=== PATIENT | female | born 2000 | race Caucasian/White ===

== ENCOUNTER 2023-12-03 09:24 | Emergency (ER) | payer OTHER, SELFPAY ==
--- NOTE | 2023-12-03 10:07 | ED_ITS ---
HPI - Extremity Injury (Lower) General Chief Complaint: Extremity Injury, Lower Stated Complaint: r foot inj Time Seen by Provider: 12/03/23 10:14 Source: patient and family Mode of arrival: wheelchair Limitations: no limitations History of Present Illness ED Provider: Felix Joshi PA-C HPI Narrative: 22 yo female presents to the ER for evaluation of right foot pain after she accidentally stepped on a pair of tweezers last night. the tweezers went into the ball of her foot, she had an entrance and an exit wound. she had some bleeding last night but it quickly resolved. woke up today with worsening pain, unable to bear weight. no drainage. no redness. unknown tdap. MD complaint: foot injury Onset (ago): hour(s) Type of Injury: puncture wound Place: home Severity: moderate Severity scale (1-10): 7 Relieving factors: rest Exacerbating factors: weight bearing, movement and palpation Context: other (stepped on tweezer) Associated symptoms: unable to bear weight Other symptoms: none Related Data Previous Rx's ?Medication ?Instructions ?Recorded ibuprofen 600 mg tablet 600 mg PO Q8H PRN pain #14 tabs 12/03/23 levofloxacin 500 mg tablet 500 mg PO DAILY #5 tabs 12/03/23 Allergies Allergy/AdvReac Type Severity Reaction Status Date / Time No Known Allergies Allergy Unverified 12/03/23 10:10 [No Known Allergies*] Review of Systems Review of Systems: Yes all other systems are reviewed and are negative PMFSH Social History Social History Advance Directives: No Advance Directives Information Provided: Yes Physical Exam Vital Signs: Vital Signs: Last Vital Signs Temp 97 F 12/03/23 10:24 Pulse 100 12/03/23 10:24 Resp 16 12/03/23 10:24 BP 155/99 H 12/03/23 10:24 Pulse Ox 99 12/03/23 10:24 O2 Del Method Room Air 12/03/23 10:24 BMI result Body Mass Index 28.3 Appearance: Alert. Oriented X3. No acute distress. HEENT: normal inspection CVS: Normal heart rate and rhythm. Pulses normal. Respiratory: No respiratory distress. Skin: Skin warm and dry. Normal skin color. Normal skin turgor. No rashes. Extremities: plantar aspect of the right foot with two small puncture sites below the head of the 3rd and 4th digits. tender to touch. mild erythema. no drainage. nontender metatarsals. Neuro: Oriented X 3. No motor deficit. No sensory deficit. Medications Administered Discontinued Medications Generic Name Dose Route Start Last Admin Trade Name Freq PRN Reason Stop Dose Admin Diphtheria/Tetanus/Acell Pertussis 0.5 ml 12/03/23 10:12 12/03/23 10:21 Diphth,Pertus(Acell),Tet Adult 0.5 Ml Syringe IM 12/03/23 10:13 0.5 ml .ONCE ONE Administration Medical Decision Making Medical Decision Making [facility] Narrative: 22 yo female presenting with a puncture wound to the right foot after she stepped on tweezers at home. wound appears superficial with entrance and exit wounds. not cellulitic at this time tdap given will d/c with antibiotics. discussed wound care and return precautions. stable for d/c Differential Diagnosis Differential Diagnoses: The differential diagnosis associated with the presentation includes puncture wound, cellulitis, abrasion, laceration Tests considered The following testing was considered but not selected: xr foot considered Prescription Management I considered prescription management with: Pain Medication and Antibiotic Critical Care Time Critical Care Time Critical Care Time: No Discharge Plan Discharge Clinical Impression: Puncture wound Patient Disposition: Home, Self-Care Instructions: Puncture Wound in the Foot (ED) Additional Instructions: Take the prescribed antibiotics as directed, complete the entire course and do not miss any doses Use warm soapy soaks 2 times per day Use antibiotic ointment to the area If you develop new or worsening symptoms call 911 or come back to the ER for further evaluation. Prescriptions: New levofloxacin 500 mg tablet 500 mg PO DAILY Qty: 5 0RF ibuprofen 600 mg tablet 600 mg PO Q8H PRN (Reason: pain) Qty: 14 0RF Stand Alone Forms: Work/School Release Interventions: ED Discharge Assessment Last Done: 12/03/23 10:24 Discharge Date/Time: 12/03/23 10:26 Print Language: Danish
[2023-12-03 10:08] VITALS: BP 155/99; PULSE 100; RESP 16; TEMP 36.1; O2SAT 99; BMI 28.3
[2023-12-03] MEDS: Diphth,Pertus(ACell),Tet Adult 0.5 ML SYRINGE IM (10:21)
[2023-12-03 10:24] VITALS: BP 155/99; PULSE 100; RESP 16; TEMP 36.1; O2SAT 99
== END 2023-12-03 10:26 | disposition home or self-care (01) ==
PROVIDERS: Emergency Provider Emergency Medicine
DX: S91.331A Puncture wound without foreign body, right foot, initial encounter (principal); W22.8XXA Striking against or struck by other objects, initial encounter; Y93.89 Activity, other specified; Y92.039 Unspecified place in apartment as the place of occurrence of the external cause; Y99.9 Unspecified external cause status; Z23 Encounter for immunization
CPT/HCPCS: 90471; 90715; 99282; 99284